=== PATIENT | female | born 1950 | race Asian ===

== ENCOUNTER 2023-07-31 14:19 | Inpatient (IN) | payer BC, MEDICAID ==
[~2023-07-31] VITALS: Ht 157.5 cm; Wt 61.5 kg
[2023-07-31 01:00] VITALS: BP 123/70; PULSE 75; RESP 18; TEMP 98.3; O2SAT 97
[2023-07-31 15:11] LABS: Basophils # (auto) 0.1 10 ^3/uL (0-0.2); Basophils % (auto) 0.5 % (0.0-2.0); Eosinophils # (auto) 0 10 ^3/uL (0-0.8); Eosinophils % (auto) 0.3 % (0.0-7.0); Hematocrit 41.9 % (36.0-46.0); Hemoglobin 13.9 g/dL (12.2-16.2); Lymphocytes # (auto) 1.6 10 ^3/uL (0.4-5.4); Lymphocytes % (auto) 16.5 % (10.0-50.0); Mean Corpuscular Hemoglobin 29.3 pg (28.0-32.0); Mean Corpuscular Volume 88.7 fL (80.0-100.0); Monocytes # (auto) 1.1 10 ^3/uL (0-1.3); Neutrophils # (auto) 7.1 10 ^3/uL (1.6-8.6); Neutrophils % (auto) 71.7 % (37.0-80.0); Nucleated Red Blood Cells % 0.1 %; Red Blood Cells 4.73 10^6/uL (4.0-5.20); Red Cell Distribution Width 13.7 % (11.8-14.3)
[2023-07-31 15:20] LABS: Alanine Aminotransferase 60 U/L (7-40); Albumin 4.8 g/dL (3.2-4.8); Alkaline Phosphatase 53 U/L (46-116); Anion Gap 3 (5-15); Aspartate Aminotransferase 38 U/L (13-40); BUN/Creatinine Ratio 20.8 (10.0-20.0); Bilirubin, Total 0.7 mg/dL (0.2-1.0); Blood Urea Nitrogen 20 mg/dL (9-23); Calcium 10.9 mg/dL (8.5-10.1); Carbon Dioxide 31 mmol/L (20-30); Chloride 112 mmol/L (98-107); Glucose 123 mg/dL (74-106); Potassium 4.1 mmol/L (3.5-5.1); Sodium 146 mmol/L (136-145); Total Protein 7.1 g/dL (5.7-8.2)
[2023-07-31] MEDS ORDERED: DEXTROSE (50%) 50ML SYRG IV PRN (17:45)
[2023-07-31] MEDS ORDERED: ACETAMINOPHEN 325 MG TAB PO PRN (17:45)
[2023-07-31] MEDS ORDERED: MORPHINE SULFATE INJ 2 MG/ml SYRG IV PRN (17:45)
[2023-07-31] MEDS ORDERED: NITROGLYCERIN 0.4 MG SL TAB SL PRN (17:45)
[2023-07-31] MEDS ORDERED: HYDROcodone-ACET 5/325MG TAB PO PRN (17:45)
[2023-07-31] MEDS ORDERED: DOCUSATE SOD 100 MG CAP PO PRN (17:45)
[2023-07-31] MEDS ORDERED: ONDANSETRON HCL 4 MG/2 ML VIAL IV PRN (17:45)
[2023-07-31 17:50] LABS: Urine Bacteria None Seen /hpf (None Seen)
[2023-07-31 18:12] LABS: Urine Amorphous Crystal FEW /hpf (None Seen); Urine Blood Negative /uL (Negative); Urine Clarity Ex.Turbid (Clear); Urine Protein, UAD TRACE (Negative); Urine Specific Gravity 1.013 (1.001-1.035); Urine Urobilinogen Normal (Negative); Urine WBC 5 /hpf (0 - 5); Urine WBC Clumps PRESENT /hpf (None Seen)
[2023-07-31 18:17] LABS: Urine Color STRAW (Yellow)
[2023-07-31] MEDS ORDERED: ROSU20TA56 PO (19:00)
[2023-07-31] MEDS ORDERED: DONE5TAB80 PO (19:00)
[2023-07-31] MEDS ORDERED: AMLO2.5C9 PO (19:00)
[2023-07-31] MEDS: ACCU-CHEK COMFORT CURVE STRIP VI SCH (22:58)
[2023-07-31] MEDS: InsuLIN REG 1unit/0.01ml Soln (100units/ml) SC SCH (23:03)
[2023-08-01 01:06] VITALS: BP 119/68; PULSE 80; RESP 17; O2SAT 94
[2023-08-01] MEDS ORDERED: CHOL20007 OR (01:51)
[2023-08-01] MEDS ORDERED: METF-370 PO (01:51)
[2023-08-01] MEDS ORDERED: GLIM2TAB33 PO (01:51)
[2023-08-01] MEDS ORDERED: LORA-622 PO (01:54)
[2023-08-01 05:00] VITALS: BP 123/73; PULSE 82; RESP 17; TEMP 98.5; O2SAT 96
[2023-08-01 07:01] LABS: Basophils # (auto) 0 10 ^3/uL (0-0.2); Basophils % (auto) 0.7 % (0.0-2.0); Eosinophils # (auto) 0.1 10 ^3/uL (0-0.8); Eosinophils % (auto) 1.2 % (0.0-7.0); Hematocrit 38.7 % (36.0-46.0); Hemoglobin 12.8 g/dL (12.2-16.2); Lymphocytes # (auto) 1.4 10 ^3/uL (0.4-5.4); Lymphocytes % (auto) 20.3 % (10.0-50.0); Mean Corpuscular Hemoglobin 29.3 pg (28.0-32.0); Mean Corpuscular Hgb Conc. 33.1 g/dL (32.0-36.0); Mean Corpuscular Volume 88.6 fL (80.0-100.0); Monocytes # (auto) 0.7 10 ^3/uL (0-1.3); Monocytes % (auto) 10.9 % (0.0-12.0); Neutrophils # (auto) 4.5 10 ^3/uL (1.6-8.6); Neutrophils % (auto) 66.9 % (37.0-80.0); Red Blood Cells 4.37 10^6/uL (4.0-5.20); Red Cell Distribution Width 13.5 % (11.8-14.3); White Blood Cell 6.7 10^3/uL (4.4-10.8)
[2023-08-01 07:28] LABS: Alanine Aminotransferase 47 U/L (7-40); Alkaline Phosphatase 44 U/L (46-116); Anion Gap 4 (5-15); Aspartate Aminotransferase 20 U/L (13-40); BUN/Creatinine Ratio 23.1 (10.0-20.0); Blood Urea Nitrogen 15 mg/dL (9-23); Calcium 9.2 mg/dL (8.5-10.1); Carbon Dioxide 32 mmol/L (20-30); Chloride 109 mmol/L (98-107); Glucose 126 mg/dL (74-106); Potassium 3.7 mmol/L (3.5-5.1); Sodium 145 mmol/L (136-145)
[2023-08-01 07:29] LABS: Albumin 4.1 g/dL (3.2-4.8); Bilirubin, Total 0.7 mg/dL (0.2-1.0)
[2023-08-01 07:30] LABS: Total Protein 6.1 g/dL (5.7-8.2)
[2023-08-01 08:15] VITALS: PULSE 92; RESP 18; O2SAT 96
[2023-08-01 09:05] VITALS: BP 129/74; PULSE 92; RESP 18; TEMP 97.8; O2SAT 96
[2023-08-01] MEDS ORDERED: ATORVASTATIN 20 MG TAB PO SCH (22:00)
[2023-08-01] MEDS ORDERED: DONEPEZIL HYDROCHLORIDE 5 MG TAB PO SCH (22:00)
== END 2023-08-01 15:20 | disposition left against medical advice (07) | DRG 149 ==
LOC: ER 14:19 → OVERFLOW 17:42 → EAST 23:07
PROVIDERS: ADMIT Nurse Practitioner Family; ATTEND Internal Medicine
DX: R42 Dizziness and giddiness (principal); E87.0 Hyperosmolality and hypernatremia; E11.9 Type 2 diabetes mellitus without complications; E78.5 Hyperlipidemia, unspecified; E83.52 Hypercalcemia; I10 Essential (primary) hypertension; R56.9 Unspecified convulsions; Z53.29 Procedure and treatment not carried out because of patient's decision for other reasons
CPT/HCPCS: 36415; 70450; 80053; 81001; 82962; 85025; 93005; G0378; J1815

== ENCOUNTER 2023-11-20 09:53 | Emergency (ER) | payer BC, MEDICAID ==
[~2023-11-20] VITALS: Ht 154.9 cm; Wt 55.0 kg
[~2023-11-20 09:53] MED LIST: AMLO2.5C9 PO; CHOL20007 OR; DONE5TAB80 PO; GLIM2TAB33 PO; LORA-622 PO; METF-370 PO; ROSU20TA56 PO
[2023-11-20] MEDS: LIDOCAINE VISCOUS 2% 15ML UD PO ONE (10:41)
[2023-11-20] MEDS: ONDANSETRON ODT 4 MG TAB PO ONE (10:42)
[2023-11-20] MEDS: DONNATAL 5ml ORAL Elix (BELLADONNA ALK-PHENOBARB) PO ONE (10:42)
[2023-11-20] MEDS: MAALOX PLUS or MAALOX 30 ML PO ONE (10:42)
[2023-11-20 10:58] LABS: Basophils # (auto) 0 10 ^3/uL (0-0.2); Basophils % (auto) 0.5 % (0.0-2.0); Eosinophils # (auto) 0 10 ^3/uL (0-0.8); Eosinophils % (auto) 0.5 % (0.0-7.0); Hematocrit 41.8 % (36.0-46.0); Hemoglobin 14.2 g/dL (12.2-16.2); Lymphocytes # (auto) 1.2 10 ^3/uL (0.4-5.4); Lymphocytes % (auto) 14.6 % (10.0-50.0); Mean Corpuscular Hemoglobin 30.4 pg (28.0-32.0); Mean Corpuscular Volume 89.6 fL (80.0-100.0); Monocytes # (auto) 0.9 10 ^3/uL (0-1.3); Monocytes % (auto) 10.6 % (0.0-12.0); Neutrophils # (auto) 6.3 10 ^3/uL (1.6-8.6); Neutrophils % (auto) 73.8 % (37.0-80.0); Nucleated Red Blood Cells % 0.1 %; Platelet Count (auto) 253 10^3/uL (140-450); Red Blood Cells 4.66 10^6/uL (4.0-5.20); Red Cell Distribution Width 13.8 % (11.8-14.3); White Blood Cell 8.5 10^3/uL (4.4-10.8)
[2023-11-20 11:14] LABS: Alanine Aminotransferase 53 U/L (7-40); Albumin 4.6 g/dL (3.2-4.8); Alkaline Phosphatase 54 U/L (46-116); Anion Gap 7 (5-15); Aspartate Aminotransferase 32 U/L (13-40); BUN/Creatinine Ratio 12.8 (10.0-20.0); Bilirubin, Total 0.8 mg/dL (0.2-1.0); Blood Urea Nitrogen 10 mg/dL (9-23); Calcium 10.4 mg/dL (8.7-10.4); Carbon Dioxide 28 mmol/L (20-31); Chloride 109 mmol/L (98-107); Glucose 211 mg/dL (74-106); Lipase 88 U/L (12-53); Potassium 4.4 mmol/L (3.5-5.1); Sodium 144 mmol/L (136-145); Total Protein 6.7 g/dL (5.7-8.2)
[2023-11-20 13:24] LABS: Urine Bacteria FEW /hpf (None Seen); Urine Blood 1+ /uL (Negative); Urine Clarity Clear (Clear); Urine Color Colorless (Yellow); Urine Protein, UAD 1+ (Negative); Urine Specific Gravity 1.006 (1.001-1.035); Urine Urobilinogen Normal (Negative); Urine WBC 1 /hpf (0 - 5)
[2023-11-20 15:22] VITALS: BP 137/68; PULSE 83; RESP 18; TEMP 98.8; O2SAT 98
[2023-11-20] MEDS ORDERED: CALC500C3 PO (18:11)
[2023-11-20] MEDS ORDERED: OMEP-434 PO (18:11)
[2023-11-20] MEDS ORDERED: ZOFR4T PO (18:11)
== END 2023-11-20 18:34 | disposition home or self-care (01) ==
LOC: ER 09:53
DX: R19.06 Epigastric swelling, mass or lump (principal); R79.89 Other specified abnormal findings of blood chemistry; I10 Essential (primary) hypertension; E11.9 Type 2 diabetes mellitus without complications; E78.5 Hyperlipidemia, unspecified; Z90.710 Acquired absence of both cervix and uterus; Z98.890 Other specified postprocedural states; Z79.899 Other long term (current) drug therapy
CPT/HCPCS: 36415; 74176; 80053; 81001; 82962; 83690; 84484; 85025; 99284; Q0162